=== PATIENT | female | born 1985 | race Two or more races ===

== ENCOUNTER 2021-08-21 11:11 | Emergency (ER) | payer MEDICAID ==
[~2021-08-21] VITALS: Ht 149.9 cm; Wt 86.0 kg
[~2021-08-21 11:11] MED LIST: PREN1TAB52 PO
[2021-08-21 13:57] VITALS: BP 126/66
== END 2021-08-21 14:10 | disposition home or self-care (01) ==
LOC: EMS 11:11
DX: S16.1XXA Strain of muscle, fascia and tendon at neck level, initial encounter (principal); V49.9XXA Car occupant (driver) (passenger) injured in unspecified traffic accident, initial encounter; Y93.89 Activity, other specified; Y92.89 Other specified places as the place of occurrence of the external cause; Y99.8 Other external cause status
CPT/HCPCS: 72040; 99283